=== PATIENT | female | born 1970 | race Two or more races ===

== ENCOUNTER 2025-09-20 23:23 | Inpatient (IN) | payer MEDICAID, OTHER ==
[~2025-09-20] VITALS: Ht 167.6 cm; Wt 76.3 kg
[2025-09-21 00:19] LABS: Mean Corpuscular Volume 78.8 fL (80.0-100.0); Nucleated Red Blood Cells % 0.1 %
[2025-09-21 00:20] LABS: Hematocrit 43.2 % (36.0-46.0); Hemoglobin 13.5 g/dL (12.2-16.2); Mean Corpuscular Hemoglobin 24.6 pg (28.0-32.0)
[2025-09-21 00:23] LABS: Chloride 102 mmol/L (98-107); Potassium 3.6 mmol/L (3.5-5.1); Sodium 143 mmol/L (136-145)
[2025-09-21 00:24] LABS: Anion Gap 12 (5-15); Carbon Dioxide 29 mmol/L (20-31)
[2025-09-21 00:25] LABS: Calcium 9.7 mg/dL (8.7-10.4)
[2025-09-21 00:30] LABS: BUN/Creatinine Ratio 27.1 (10.0-20.0); Blood Urea Nitrogen 26 mg/dL (9-23); Glucose 61 mg/dL (74-106)
--- NOTE | 2025-09-21 00:30 | ED.PDOC ---
History of Present Illness HPI Comments 55-year-old, Azerbaijani-speaking female presents with chief complaint of hypoglycemia. We are going to history of diabetes and hypertension. Patient reports on checking and noticing her blood glucose levels being low in the 30s range, this evening. She comments taking 45 units of her insulin every morning and night and her blood glucose levels normally being in the 90s range. Additional recent history of return travelled from [place]. At time of assessment, patient reports on, now, feeling fine. He denies an any dizziness, palpitations, confusion, or further acute symptoms. 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 Family History Family History: Unknown Social History Smoker: Non-Smoker Alcohol: Denies ETOH Use Drugs: Denies Drug Use Lives In: Home All Other Systems: Reviewed and Negative (Comprehensive review of systems are negative unless stated in HPI) Physical Exam General Appearance: No Apparent Distress, Normal HEENT: Normal ENT Inspection, Pharynx Normal, TMs Normal Neck: Full Range of Motion, Non-Tender, Normal, Normal Inspection Respiratory: Chest Non-Tender, Lungs Clear, No Accessory Muscle Use, No Respiratory Distress, Normal Breath Sounds Cardiovascular: No Edema, No JVD, No Murmur, No Gallop, Normal Peripheral Pulses, Regular Rate/Rhythm Breast Exam: Deferred Gastrointestinal: No Organomegaly, Non Tender, No Pulsatile Mass, Normal Bowel Sounds, Soft Genitalia: Deferred Pelvic: Deferred Rectal: Deferred Extremities: No calf tenderness, Normal capillary refill, Normal inspection, Normal range of motion, Non-tender, No pedal edema Musculoskeletal : Apperance: Normal Neurologic: Alert, trap operator II-XII nml as Tested, No Motor Deficits, Normal Affect, Normal Mood, No Sensory Deficits Cerebellar Function: Normal Reflexes: Normal Skin: Dry, Normal Color, Warm Lymphatic: No Adenopathy Was a procedure done? Was a procedure done?: No Differential Dx Considerations may include: Hypoglycemia, medication noncompliance, encephalopathy, dehydration, electrolyte imbalance, among others X-Ray, Labs, Meds, VS Vital Signs Date Time Temp Pulse Resp B/P (MAP) Pulse Ox O2 Delivery O2 Flow Rate FiO2 09/20/25 23:39 97.6 82 20 184/104 96 97.6 Lab Test 09/21/25 00:55 09/20/25 23:59 Range/Units Urine Color Colorless Yellow Urine Clarity Clear Clear Urine pH 5.5 5.0-9.0 Urine Specific [place] 1.006 1.001-1.035 Urine Protein Negative Negative Urine Ketones Negative Negative Urine Blood Negative Negative /uL Urine Nitrite Negative Negative Urine Bilirubin Negative Negative Urine Urobilinogen Normal Negative mg/dL Urine Leukocyte Esterase Negative Negative /uL Urine RBC None seen 0 - 4 /hpf Urine Microscopic WBC 1 0-5 /HPF Urine Squamous Epithelial Cells Few <5 /hpf Urine Bacteria Mod H None Seen /hpf Urine Glucose 3+ H Normal mg/dL White Blood Count 4.0 L 4.4-10.8 10^3/uL Red Blood Count 5.49 H 4.0-5.20 10^6/uL Hemoglobin 13.5 12.2-16.2 g/dL Hematocrit 43.2 36.0-46.0 % Mean Corpuscular Volume 78.8 L 80.0-100.0 fL Mean Corpuscular Hemoglobin 24.6 L 28.0-32.0 pg Mean Corpuscular Hemoglobin Concent 31.2 L 32.0-36.0 g/dL Red Cell Distribution Width 31.8 H 11.8-14.3 % Platelet Count 70 L 140-450 10^3/uL Mean Platelet Volume 10.3 6.9-10.8 fL Neutrophils (%) (Auto) 59.6 37.0-80.0 % Lymphocytes (%) (Auto) 19.8 10.0-50.0 % Monocytes (%) (Auto) 15.8 H 0.0-12.0 % Eosinophils (%) (Auto) 3.8 0.0-7.0 % Basophils (%) (Auto) 1.0 0.0-2.0 % Neutrophils # (Auto) 2.4 1.6-8.6 10 ^3/uL Lymphocytes # (Auto) 0.8 0.4-5.4 10 ^3/uL Monocytes # (Auto) 0.6 0-1.3 10 ^3/uL Eosinophils # (Auto) 0.2 0-0.8 10 ^3/uL Basophils # (Auto) 0 0-0.2 10 ^3/uL Nucleated Red Blood Cells 0.1 % Sodium Level 143 136-145 mmol/L Potassium Level 3.6 3.5-5.1 mmol/L Chloride Level 102 98-107 mmol/L Carbon Dioxide Level 29 20-31 mmol/L Anion Gap 12 5-15 Blood Urea Nitrogen 26 H 9-23 mg/dL Creatinine 0.96 0.550-1.02 mg/dL Glomerular Filtration Rate Calc 70 >90 mL/min BUN/Creatinine Ratio 27.1 H 10.0-20.0 Serum Glucose 61 L 74-106 mg/dL Calcium Level 9.7 8.7-10.4 mg/dL Time of 1ST Reevaluation: 00:30 Reevaluation 1ST: Unchanged Patient Education/Counseling: Diagnosis, Treatment, Other (Need for admission) Family Education/Counseling: No Family Present Comments Patient is newly arrived from [place]. She uses a fixed dose of insulin without checking her blood sugar. She has a very knowledge about diabetic care treatment. Her sugar dropped down to the 60s and she felt symptomatic tonight. Patient will be admitted for continued blood sugar monitoring as well as provide diabetic teaching and adjustment and optimization of her diabetic treatments. Additional Information Previous visits reviewed: n/a Labs ordered: Accu-Chek, BMP, UA, CBC Images reviewed: n/a Additional historian is interviewed: n/a SEPSIS Sepsis Screen Date sepsis recognized/suspect: Sep 20, 2025 Time Sepsis recognized/suspect: 2341 Recent Procedure: No On Antibiotic Therapy: No Respiratory Rate >20: No Heart Rate >90: No Temp<36 C (96.8 F) or >38.3 C: No SBP <90 or MAP <65 mmHG: No New Acute Mental Status Change: No Is the patient on CPAP, BIPAP,: No Physician Orders Accucheck (09/21/25 00:00) Accucheck (09/21/25 01:00) Accucheck (09/21/25 02:00) Accucheck (09/21/25 03:00) Accucheck (09/21/25 04:00) Accucheck (09/21/25 05:00) Accucheck (09/21/25 06:00) Accucheck (09/21/25 07:00) Accucheck (09/21/25 08:00) Accucheck (09/21/25 09:00) Accucheck (09/21/25 10:00) Accucheck (09/21/25 11:00) Accucheck (09/21/25 12:00) Accucheck (09/21/25 13:00) Accucheck (09/21/25 14:00) Accucheck (09/21/25 15:00) Accucheck (09/21/25 16:00) Accucheck (09/21/25 17:00) Accucheck (09/21/25 18:00) Accucheck (09/21/25 19:00) Accucheck (09/21/25 20:00) Accucheck (09/21/25 21:00) Accucheck (09/21/25 22:00) Accucheck (09/21/25 23:00) Vital Signs Date Time Temp Pulse Resp B/P (MAP) Pulse Ox O2 Delivery O2 Flow Rate FiO2 09/20/25 23:39 97.6 82 20 184/104 96 97.6 Laboratory Tests Test 09/20/25 23:59 White Blood Count 4.0 10^3/uL (4.4-10.8) L Departure 1 Departure Time of Disposition: 01:55 Impression: Primary Impression: Hypoglycemia Additional Impression: Diabetes education, encounter for Disposition: ADMITTED INPATIENT Admit to: Med Surg Condition: Stable Discharged With: Self Critical Care Note Critical Care Time?: No Stability Stability form required: No Heart Score Heart Score: Heart Score Response (Comments) Value History N/A 0 EKG N/A 0 Age N/A 0 Risk Factors N/A 0 Troponin N/A 0 Total 0 I personally scribed for LAZ GLASS MD ([email or web address]) on 09/21/25 at 00:30. Electronically submitted by Landen Luke [email or web address]). LAZ GLASS MD Sep 21, 2025 00:30
[2025-09-21 01:24] LABS: Urine Protein, UAD Negative (Negative)
[2025-09-21] MEDS ORDERED: ACETAMINOPHEN 325 MG TAB PO PRN (04:00)
[2025-09-21] MEDS ORDERED: ONDANSETRON HCL 4 MG/2 ML VIAL IV PRN (04:00)
[2025-09-21] MEDS ORDERED: DEXTROSE (50%) 50ML SYRG IV PRN (04:00)
--- NOTE | 2025-09-21 04:31 | DVHHP2 ---
History of Present Illness Reason for Visit: Altered mental status History of Present Illness 55-year-old female presents for evaluation of altered mental status. Patient was noted to be confused and lethargic by family members. Her blood sugar levels were reading in the 30s. Patient is currently lethargic oriented x2. No headache or blurred vision. No unilateral weakness. No chest pain Past Medical History Hypertension and diabetes mellitus Past Surgical History Denies Family History Noncontributory Smoke: No ALCOHOL: none Drugs: None Lives: with Family Review of Systems Review of Systems Review of systems are currently negative otherwise addressed in HPI. Allergies: Coded Allergies: No Known Drug Allergy (Verified Allergy, Unknown, 09/20/25) Medications Current Medications Medications Dose Ordered Sig/Bia Route Start Time Stop Time Status Last Admin Dose Admin Diagnostic Test (Pha) 1 strip IQ4HR 09/21/25 04:00 Insulin Human Regular IQ4HR SC 09/21/25 04:00 Dextrose 50 ml UD PRN IV 09/21/25 04:00 Ondansetron HCl 4 mg Q4HP PRN IV 09/21/25 04:00 Acetaminophen 650 mg Q6HP PRN PO 09/21/25 04:00 Lisinopril 10 mg DAILY PO 09/21/25 10:00 Exam Vital Signs Vital Signs Date Time Temp Pulse Resp B/P (MAP) Pulse Ox O2 Delivery O2 Flow Rate FiO2 09/21/25 03:17 98.1 85 18 142/86 (104) 98 98.1 Exam Gen: 55-year-old female in no apparent distress. Skin: Warm, dry, normal color and texture, no rash. HEENT: Normocephalic atraumatic, mucous membranes moist and pink. Neck: Cervical and supraclavicular nodes normal without enlargement, trachea is midline, thyroid gland is normal without masses. Pulmonary: Clear to auscultation and percussion bilaterally. Cardiac: Regular rate and rhythm. No murmur Abdomen: Soft, nontender, nondistended, bowel sounds present all 4 quadrants, no guarding, no rigidity, no organomegaly. Extremities: No cyanosis, clubbing, no edema Neuro: Cranial nerves II through XII grossly intact, normal affect and speech, no focal motor deficits. Labs/Xrays Labs Test 09/21/25 00:55 09/20/25 23:59 Range/Units Urine Color Colorless Yellow Urine Clarity Clear Clear Urine pH 5.5 5.0-9.0 Urine Specific [place] 1.006 1.001-1.035 Urine Protein Negative Negative Urine Ketones Negative Negative Urine Blood Negative Negative /uL Urine Nitrite Negative Negative Urine Bilirubin Negative Negative Urine Urobilinogen Normal Negative mg/dL Urine Leukocyte Esterase Negative Negative /uL Urine RBC None seen 0 - 4 /hpf Urine Microscopic WBC 1 0-5 /HPF Urine Squamous Epithelial Cells Few <5 /hpf Urine Bacteria Mod H None Seen /hpf Urine Glucose 3+ H Normal mg/dL White Blood Count 4.0 L 4.4-10.8 10^3/uL Red Blood Count 5.49 H 4.0-5.20 10^6/uL Hemoglobin 13.5 12.2-16.2 g/dL Hematocrit 43.2 36.0-46.0 % Mean Corpuscular Volume 78.8 L 80.0-100.0 fL Mean Corpuscular Hemoglobin 24.6 L 28.0-32.0 pg Mean Corpuscular Hemoglobin Concent 31.2 L 32.0-36.0 g/dL Red Cell Distribution Width 31.8 H 11.8-14.3 % Platelet Count 70 L 140-450 10^3/uL Mean Platelet Volume 10.3 6.9-10.8 fL Neutrophils (%) (Auto) 59.6 37.0-80.0 % Lymphocytes (%) (Auto) 19.8 10.0-50.0 % Monocytes (%) (Auto) 15.8 H 0.0-12.0 % Eosinophils (%) (Auto) 3.8 0.0-7.0 % Basophils (%) (Auto) 1.0 0.0-2.0 % Neutrophils # (Auto) 2.4 1.6-8.6 10 ^3/uL Lymphocytes # (Auto) 0.8 0.4-5.4 10 ^3/uL Monocytes # (Auto) 0.6 0-1.3 10 ^3/uL Eosinophils # (Auto) 0.2 0-0.8 10 ^3/uL Basophils # (Auto) 0 0-0.2 10 ^3/uL Nucleated Red Blood Cells 0.1 % Sodium Level 143 136-145 mmol/L Potassium Level 3.6 3.5-5.1 mmol/L Chloride Level 102 98-107 mmol/L Carbon Dioxide Level 29 20-31 mmol/L Anion Gap 12 5-15 Blood Urea Nitrogen 26 H 9-23 mg/dL Creatinine 0.96 0.550-1.02 mg/dL Glomerular Filtration Rate Calc 70 >90 mL/min BUN/Creatinine Ratio 27.1 H 10.0-20.0 Serum Glucose 61 L 74-106 mg/dL Calcium Level 9.7 8.7-10.4 mg/dL SEPSIS Sepsis Screen Date sepsis recognized/suspect: Sep 20, 2025 Time Sepsis recognized/suspect: 2341 Recent Procedure: No On Antibiotic Therapy: No Respiratory Rate >20: No Heart Rate >90: No Temp<36 C (96.8 F) or >38.3 C: No SBP <90 or MAP <65 mmHG: No New Acute Mental Status Change: No Is the patient on CPAP, BIPAP,: No Physician Orders Accucheck (09/21/25 00:00) Accucheck (09/21/25 01:00) Accucheck (09/21/25 02:00) Accucheck (09/21/25 03:00) Accucheck (09/21/25 04:00) Accucheck (09/21/25 05:00) Accucheck (09/21/25 06:00) Accucheck (09/21/25 07:00) Accucheck (09/21/25 08:00) Accucheck (09/21/25 09:00) Accucheck (09/21/25 10:00) Accucheck (09/21/25 11:00) Accucheck (09/21/25 12:00) Accucheck (09/21/25 13:00) Accucheck (09/21/25 14:00) Accucheck (09/21/25 15:00) Accucheck (09/21/25 16:00) Accucheck (09/21/25 17:00) Accucheck (09/21/25 18:00) Accucheck (09/21/25 19:00) Accucheck (09/21/25 20:00) Accucheck (09/21/25 21:00) Accucheck (09/21/25 22:00) Accucheck (09/21/25 23:00) Admit (09/21/25 03:16) Hemoglobin A1c (09/21/25 03:52) Glucose Blood (Accu-Chek Comfort Curve T (09/21/25 04:00) Insulin R (Human) (Insulin R) (09/21/25 04:00) Dextrose 50% Syringe (09/21/25 04:00) Ondansetron Hcl (Zofran) (09/21/25 04:00) Condition: Stable (09/21/25 03:52) Acetaminophen Tablet (Tylenol Tablet) (09/21/25 04:00) Bedrest With Bathroom Privileg (09/21/25 03:52) Lactic Acid W/ Reflex Order (09/21/25 03:52) Lisinopril Tablet (Zestril Tablet) (09/21/25 10:00) Vital Signs Date Time Temp Pulse Resp B/P (MAP) Pulse Ox O2 Delivery O2 Flow Rate FiO2 09/21/25 03:17 98.1 85 18 142/86 (104) 98 98.1 09/20/25 23:39 97.6 82 20 184/104 96 97.6 Laboratory Tests Test 09/20/25 23:59 White Blood Count 4.0 10^3/uL (4.4-10.8) L Assessment/Plan Assessment/Plan Assessment Metabolic encephalopathy Hypoglycemia Diabetes mellitus Hypertension Admit the patient to Med surge to the hospitalist Q.4 hour Accu-Cheks Start D10 if blood sugars drop below 50. Continue treatment per orders. Plan discussed with: Patient My Orders Orders - FCO VELIZ Procedure Category Date Status Time Admit ADMIT 09/21/25 Transmitted 03:16 Hemoglobin A1c LAB 09/21/25 Logged 03:52 Glucose Blood PHA 09/21/25 In Process (Accu-Chek Comfort 04:00 Insulin R (Human) PHA 09/21/25 In Process (Insulin R) 04:00 Dextrose 50% Syringe PHA 09/21/25 In Process 04:00 Ondansetron Hcl PHA 09/21/25 In Process (Zofran) 04:00 Condition: Stable ROB 09/21/25 In Process 03:52 Acetaminophen Tablet PHA 09/21/25 In Process (Tylenol Tablet) 04:00 Bedrest With Bathroom ROB 09/21/25 In Process Privileg 03:52 Lactic Acid W/ Reflex LAB 09/21/25 Logged Order 03:52 Lisinopril Tablet PHA 09/21/25 In Process (Zestril Tablet) 10:00 Date of Service: Sep 21, 2025 Billing Provider: FCO VELIZ Common Visit Codes: [id number] INP/OBS CARE (HIGH) FCO VELIZ Sep 21, 2025 04:31
[2025-09-21] MEDS: InsuLIN REG 1unit/0.01ml Soln (100units/ml) SC SCH (04:35)
[2025-09-21] MEDS: ACCU-CHEK COMFORT CURVE STRIP VI SCH (04:39)
[2025-09-21] MEDS: LISINOPRIL 5 MG TAB PO SCH (04:45)
[2025-09-21 04:47] VITALS: PULSE 86; RESP 18; O2SAT 97
[2025-09-21 11:09] VITALS: BP 122/72; PULSE 88; RESP 18; TEMP 98; O2SAT 100
[2025-09-21 13:40] VITALS: BP 122/72; PULSE 88; RESP 18; TEMP 36.7
--- NOTE | 2025-09-21 16:03 | DVHDS2 ---
Discharge Summary Date of Admission Sep 21, 2025 at 03:16 Date of Discharge: Sep 21, 2025 Labs/Diagnostic Data: Laboratory Results Test 09/21/25 11:52 09/21/25 04:36 09/21/25 00:55 09/20/25 23:59 POC Glucose 234 mg/dl (70-106) Hemoglobin A1c 6.6 % A1C (<5.7) Lactic Acid Level 2.0 mmol/L (0.4-2.0) Urine Color Colorless (Yellow) Urine Clarity Clear (Clear) Urine pH 5.5 (5.0-9.0) Urine Specific [place] 1.006 (1.001-1.035) Urine Protein Negative (Negative) Urine Ketones Negative (Negative) Urine Blood Negative /uL (Negative) Urine Nitrite Negative (Negative) Urine Bilirubin Negative (Negative) Urine Urobilinogen Normal mg/dL (Negative) Urine Leukocyte Esterase Negative /uL (Negative) Urine RBC None seen /hpf (0 - 4) Urine Microscopic WBC 1 /HPF (0-5) Urine Squamous Epithelial Cells Few /hpf (<5) Urine Bacteria Mod /hpf (None Seen) Urine Glucose 3+ mg/dL (Normal) White Blood Count 4.0 10^3/uL (4.4-10.8) Red Blood Count 5.49 10^6/uL (4.0-5.20) Hemoglobin 13.5 g/dL (12.2-16.2) Hematocrit 43.2 % (36.0-46.0) Mean Corpuscular Volume 78.8 fL (80.0-100.0) Mean Corpuscular Hemoglobin 24.6 pg (28.0-32.0) Mean Corpuscular Hemoglobin Concent 31.2 g/dL (32.0-36.0) Red Cell Distribution Width 31.8 % (11.8-14.3) Platelet Count 70 10^3/uL (140-450) Mean Platelet Volume 10.3 fL (6.9-10.8) Neutrophils (%) (Auto) 59.6 % (37.0-80.0) Lymphocytes (%) (Auto) 19.8 % (10.0-50.0) Monocytes (%) (Auto) 15.8 % (0.0-12.0) Eosinophils (%) (Auto) 3.8 % (0.0-7.0) Basophils (%) (Auto) 1.0 % (0.0-2.0) Neutrophils # (Auto) 2.4 10 ^3/uL (1.6-8.6) Lymphocytes # (Auto) 0.8 10 ^3/uL (0.4-5.4) Monocytes # (Auto) 0.6 10 ^3/uL (0-1.3) Eosinophils # (Auto) 0.2 10 ^3/uL (0-0.8) Basophils # (Auto) 0 10 ^3/uL (0-0.2) Nucleated Red Blood Cells 0.1 % Sodium Level 143 mmol/L (136-145) Potassium Level 3.6 mmol/L (3.5-5.1) Chloride Level 102 mmol/L (98-107) Carbon Dioxide Level 29 mmol/L (20-31) Anion Gap 12 (5-15) Blood Urea Nitrogen 26 mg/dL (9-23) Creatinine 0.96 mg/dL (0.550-1.02) Glomerular Filtration Rate Calc 70 mL/min (>90) BUN/Creatinine Ratio 27.1 (10.0-20.0) Serum Glucose 61 mg/dL (74-106) Calcium Level 9.7 mg/dL (8.7-10.4) Other Laboratory Tests 09/20/25 23:59 Brief Hx & Hospital Course: Came with hypoglycemia during hospital stay feeling better with no episodes Condition at Discharge: Good Final Diagnosis/Problems List hypoglycemmia Discharge Disposition: Home Discharge Instruct/Medications Diet: Regular Activity: No Restrictions, As Tolerated Follow Up/Referral: PCP in 7 days Medications: same home medications No Active Prescriptions or Reported Meds Discharge Statement: "Patient was advised to return to the ER or call 911 if any headaches, dizziness, shortness of breath, chest pain, abdominal pain, bleeding, fevers, or worsening of medical condition. Patient was counseled about treatment plan, medications, possible side effects, patientverbalized understanding. All questions were answered to the best of my ability. This discharge took greater then 30 minutes in planning, reviewing documentation, counseling the patient, and discussing with other team members." ASSESSMENT ASSESSMENT Assessment hypoglycemmia Date of Service: Sep 21, 2025 Billing Provider: VEGA SHIPMAN MD Common Visit Codes: [id number] DISCH DAY >30min VEGA SHIPMAN MD Sep 21, 2025 16:02
== END 2025-09-21 14:07 | disposition home or self-care (01) | DRG 420 ==
LOC: ER 23:23 → OVERFLOW 09-21 03:16
PROVIDERS: ADMIT Hospitalist; ATTEND Hospitalist
DX: E11.649 Type 2 diabetes mellitus with hypoglycemia without coma (principal); G93.41 Metabolic encephalopathy; I10 Essential (primary) hypertension; I16.0 Hypertensive urgency
CPT/HCPCS: 36415; 80048; 81001; 82962; 83036; 83605; 85025; G0378; J1815